=== PATIENT | female | born 1990 | race Caucasian/White ===

== ENCOUNTER 2021-05-21 01:49 | Inpatient (IN) | payer OTHER, SELFPAY ==
[2021-05-21] VITALS (30 sets, daily range): BP systolic 111–153; BP diastolic 66–99; PULSE 70–168; RESP 16–18; TEMP 36.4–37.3; O2SAT 92–100; BMI 25.1
[2021-05-21] MEDS: Lactated Ringers 1,000 ML 50 ML IV (02:05)
[2021-05-21 02:18] LABS: Absolute Lymphocyte Count 1.13 X10^3/uL (0.83-4.51); Absolute Neutrophil Count 8.3 X10^3/uL (2.0-7.7); Basophil# 0.05 X10^3/uL; Basophil% 0.5 % (0-1); Eosinophil# 0.08 X10^3/uL; Eosinophils% 0.8 % (0-5); Hemoglobin 13.2 g/dL (12.0-15.0); Lymphocyte # 1.13 X10^3/ul (0.83-4.51); Mean Corp Hgb Conc 34.7 g/dL (32-36); Mean Corpuscular Hgb 31.1 pg (27.0-32.0); Mean Corpuscular Volume 89.4 fL (81-99); Mean Platelet Vol. 9.2 fl (6.2-12.0); Monocyte# 0.64 X10^3/uL; Monocyte% 6.2 % (0-10); NRBC Flagged by Analyzer 0 % (0-5); Neutrophil # 8.27 X10^3/uL (2.7-7.7); Neutrophil % 80.7 % (47-70); Platelet Count 201 K/mm3 (150-450); RBC Distribution Width CV 13.2 % (11.6-14.6); RBC Distribution Width SD 43.2 fl (35.1-43.9); Red Blood Count 4.25 M/mm3 (4.2-5.4); White Blood Count 10.3 K/mm3 (4.4-11.0)
[2021-05-21] MEDS: Lactated Ringers 500 ML 999 ML IV ×2 (02:18→04:09)
[2021-05-21] MEDS: Oxytocin 30 units/NS 500 ml 30 UNITS/500 ML IV.SOLN 334 UNITS IV (06:35)
[2021-05-21] MEDS: Methylergonovine 0.2 MG/ML Ampul IM (06:45)
--- NOTE | 2021-05-21 06:50 | PCM.HP.OB ---
HPI - General General Date of Admission: 05/21/21 Date of Service: 05/21/21 Chief Complaint: labor HPI Narrative JANNETH PRATT, 31-year-old 4 para 3 at 40-3/7 weeks gestation complaining of contractions ablatio. has been uncomplicated to date. She has a history of 3 vaginal deliveries. She had gestational hypertension with her first . Maternal Data Information Final BILL: 05/18/21 Gestational age: 40 3/7 weeks PFSH PFSH Medical History (Updated 05/21/21 @ 06:[address] Ingrid Fernández MD) Gestational HTN Home Medications Baby Aspirin 81 mg DAILY 05/21/21 [History Last Taken 05/20/21 21:00] 08/29 1 tablet DAILY 05/21/21 [History Last Taken 05/20/21 21:00] Allergy/AdvReac Type Severity Reaction Status Date / Time Cephalosporins Allergy Swelling Verified 05/21/21 01:58 Sulfa (Sulfonamide Allergy Swelling Verified 05/21/21 01:58 Antibiotics) ciprofloxacin [From Cipro] AdvReac Rash Verified 05/21/21 01:58 Surgical History (Updated 05/21/21 @ 02:08 by Verónica Pereyra) History of surgery Social History Smoking Status: Never smoker History Elective abortions Hx Para 3 Spontaneous abortions Hx # Term Pregnancies Ectopic pregnancies Hx # Pregnancies Multiple births # of living children ROS Constitutional Constitutional: Denies fatigue, fever(s) or malaise Eyes Eyes: Denies change in vision ENT HEENT: Denies dizziness or headache(s) Cardiovascular Cardiovascular: Denies chest pain, dyspnea or lightheadedness Respiratory/Chest Respiratory/Chest: Denies cough or dyspnea Gastrointestinal Gastrointestinal: Denies change in bowel habits Genitourinary Genitourinary: Denies burning urination or genital lesions Integumentary Integumentary: Denies rash Neurologic Neurologic: Denies confusion, dizziness, headache(s), numbness or weakness Vital Signs Vital Signs Vital Signs: 05/21/21 01:48 05/21/21 01:53 05/21/21 02:18 Temperature 98.5 F Temperature Source Temporal Pulse Rate 86 87 Blood Pressure 142/95 H BP Systolic 142 BP Diastolic 95 Pulse Ox 98 92 05/21/21 02:22 05/21/21 02:27 05/21/21 02:51 Temperature Temperature Source Pulse Rate 82 89 168 H Blood Pressure 153/99 H BP Systolic 153 BP Diastolic 99 Pulse Ox 100 99 98 05/21/21 02:52 05/21/21 03:24 05/21/21 03:25 Temperature 98.1 F 98.1 F Temperature Source Temporal Temporal Pulse Rate 70 79 Blood Pressure 136/90 H BP Systolic 136 BP Diastolic 90 Pulse Ox 99 98 05/21/21 05:00 Temperature 98.7 F Temperature Source Temporal Pulse Rate 89 Blood Pressure 131/90 H BP Systolic 131 BP Diastolic 90 Pulse Ox 96 Weight Weight: 66.4 kg Body Mass Index (BMI) 25.1 Physical Exam Const alert and no apparent distress General Appearance: cooperative HEENT normocephalic Resp normal respiratory effort Cardio regular rate GI soft to palpation GI Narrative: gravid, nontender, appropriate for gestational age Extremity no calf tenderness General Extremity: edema Skin no wounds Rashes: No rashes noted Psych activity/motor behavior normal Labs Labs Labs: Blood Type AB NEGATIVE Antibody Screen TNP Hct 38.0 % (37-47) Hgb 13.2 g/dL (12.0-15.0) Assessment & Plan (1) 40 weeks gestation of : (2) Multigravida in third trimester: PLAN: Estimated weight is less than 4500 g clinically and pelvis clinically adequate to expect vaginal delivery. May have epidural if needed. Expectant management for vaginal delivery. (3) Active labor:
--- NOTE | 2021-05-21 06:52 | OP.PCM_ITS ---
Maternal Data Information Final BILL: 05/18/21 Gestational age: 40 3/7 Vaginal Delivery Maternal Presentation Maternal Presentation: Active Labor Operative Information Date of Procedure: 05/21/21 Pre-Operative Diagnosis: labor Post-Operative Diagnosis: same Surgery / Procedure Performed: Spontaneous Vaginal Delivery Type of Anesthesia: None Special Medications: none Drain: - (none) Estimated Blood Loss: 500 Time of Delivery: 06:33 Findings Description of Procedure: A vigorous [female] was delivered [ADONIS] over a small first-degree laceration. [A loose nuchal cord ?1 was easily reduced.] The remainder the infant was delivered with maternal pushing and gentle traction only in less than 15 seconds. The Pitocin infusion was initiated for active management of the third stage. The cord was clamped and cut [after 1 minute]. The infant was attended to by the waiting nursing staff. The placenta was deli praful spontaneously and intact. The cervix and vagina were intact. The first- degree laceration was hemostatic and not repaired. Some small clots were expressed from the uterus. Patient was given Methergine IM x1 to help keep the uterus firm. Fundus was firm on massage. Sponge and needle counts were correct. A vaginal sweep was completed by me. Presentation: ADONIS Amniotic Membrane Rupture Type: Artificial Amniotic Fluid Description: Lightly stained meconium Placental Delivery Description: Spontaneous Placenta Disposition: [facility] Cord Vessel Description: 3 Vessels Cord Entanglement: Around neck x 1, loose Nuchal Cord Compression: Without compression Infant A Gender: Female (Apryl) (1 minute): 8 (5 minute): 9 Delayed Cord Clamping: Yes Post Vaginal Delivery Medications Given After Delivery: IV Pitocin and IM Methergin Episiotomy Description: 1st degree Laceration: 1st degree Complication Complications: None Admit VTE Documentation VTE Present on Admission: No VTE Mechan Device Prophylaxis: SCD's VTE Pharm Prophylaxis Ordered: No Reason Prophylaxis Not Ordered: Procedure Not Indicated
[2021-05-21] MEDS: Naproxen 500 MG Tablet PO ×2 (07:21→15:23)
[2021-05-21] MEDS: Acetaminophen 500 MG Tablet 1000 MG PO ×2 (09:00→15:22)
--- NOTE | 2021-05-21 10:33 | NURSING ---
called [facility] nurse line to update about patient having moderate bleeding and that she had a dose of Methergine around 7am and that I do not have any orders for medications for bleeding. Asked nurse to update Dr. Huang who is consulting group analyst and gave her my extension.
--- NOTE | 2021-05-21 10:49 | NURSING ---
At [address] Huang. Updated her on medications that patient has had so far and that her bleeding was moderate at this last check and that patient is using the bathroom Q1-2 hours. Orders received for hemabate x1, Lomotilx1, CBC in AM and to call office at noon to update her on patient's bleeding.
[2021-05-21] MEDS: Diphenoxylate/Atrop 1 Tablet 2 TABLET PO (10:59)
[2021-05-21] MEDS: Carboprost Tromethamine 250 MCG/ML Ampul IM (10:59)
[2021-05-21] MEDS: Benzocaine/Lanolin/Aloe Vera 1 SPRAY EACH TOPICAL (12:17)
--- NOTE | 2021-05-21 12:25 | NURSING ---
Called [facility] to Update Dr. Huang about patient's bleeding after taking Hemabate. Updated nurse that patient's bleeding is doing a lot better and is a small amount with noon fundal check. Nurse states that she will let Dr. Huang know.
--- NOTE | 2021-05-21 12:39 | NURSING ---
Pt informed this nurse around 1210 that the left thigh where hemabate was injected is sore and red. Area cool to touch but patient states that it is painful but not itchy. Pt denies difficulty breathing or SOB. This RN asked Sanchez Doty RN to come look at area on patient's leg to confirm that it does look reddened. Pharmacist called at 1231to report reaction. Pharmacist states that localized reaction to the injection is listed on their adverse reaction list for this medication and suggested to get an order from Dr. Huang for Benadryl. Will call [facility] and Update Dr. Huang.
--- NOTE | 2021-05-21 12:47 | NURSING ---
Talked to Dr. Huang via phone. Updated her about the reaction on her left thigh from Hemabate injection and that the pharmacist suggested giving benadryl. Also updated her on patient having diarrhea even after Lomotil dose and that her bleeding is now appropriate. orders received for Benadryl and Loperamide.
--- NOTE | 2021-05-21 13:04 | NURSING ---
Area on outer left thigh marked and measures 6 1/4 inches proximal to distal and 7 inches wide.
--- NOTE | 2021-05-21 13:58 | NURSING ---
This nursing staffing coordinator reviewed the documentation completed by Davida Guerra, student nurse and it is complete.
[2021-05-21] MEDS: DiphenhydrAMINE 25 MG Capsule PO (14:10)
--- NOTE | 2021-05-21 16:03 | NURSING ---
1546 Reddened area on outer left thigh marked and measures 6 1/4 inches proximal to distal and 7 inches wide with small bruise in center
[2021-05-22] VITALS (7 sets, daily range): BP systolic 103–123; BP diastolic 55–80; PULSE 82–99; RESP 16; TEMP 36.3–37.1; O2SAT 98
[2021-05-22 04:23] LABS: Absolute Lymphocyte Count 1.57 X10^3/uL (0.83-4.51); Absolute Neutrophil Count 8.1 X10^3/uL (2.0-7.7); Basophil# 0.04 X10^3/uL; Basophil% 0.4 % (0-1); Eosinophil# 0.13 X10^3/uL; Eosinophils% 1.2 % (0-5); Hematocrit 33.1 % (37-47); Hemoglobin 11.1 g/dL (12.0-15.0); Lymphocyte # 1.57 X10^3/ul (0.83-4.51); Lymphocyte % 14.7 % (19-41); Mean Corp Hgb Conc 33.5 g/dL (32-36); Mean Corpuscular Hgb 31.1 pg (27.0-32.0); Mean Corpuscular Volume 92.7 fL (81-99); Mean Platelet Vol. 8.9 fl (6.2-12.0); Monocyte# 0.73 X10^3/uL; Monocyte% 6.9 % (0-10); NRBC Flagged by Analyzer 0 % (0-5); Neutrophil # 8.08 X10^3/uL (2.7-7.7); Neutrophil % 75.9 % (47-70); Platelet Count 185 K/mm3 (150-450); RBC Distribution Width CV 13.4 % (11.6-14.6); RBC Distribution Width SD 45.3 fl (35.1-43.9); Red Blood Count 3.57 M/mm3 (4.2-5.4); White Blood Count 10.7 K/mm3 (4.4-11.0)
--- NOTE | 2021-05-22 07:10 | NURSING ---
bedside report given to Glenn Ramsey RN and Stan Rosa RN who are assuming care of pt at this time
--- NOTE | 2021-05-22 10:32 | NURSING ---
This nurse came into the pt room. Pt was tearful and stated she was tired and had a mckinney of adrenaline. Pt has not been tearful this shift when asked if there was something she need or if there was anything we could do. She denied needing any help. This nurse suggested pt take a nap, Vital signs within normal limits. Bleeding and fundas were appropriate. watching while pt sleeps.Phone call placed to provider for discharge order.
--- NOTE | 2021-05-22 10:57 | PCM.PN.OB ---
Subjective Subjective Denies complaints Objective Data Objective Data Vital Signs: Vital Signs Temp Pulse Resp BP Pulse Ox 97.3 F L 99 16 123/80 H 98 05/22/21 10:13 05/22/21 10:13 05/22/21 10:13 05/22/21 10:13 05/22/21 00:27 Oxygen Delivery Method Room Air Weight: 146 lb 6.191 oz Body Mass Index (BMI) 25.1 Intake & Output: Intake and Output for Last 24 Hours 05/20/21 05/21/21 05/22/21 23:59 23:59 23:59 Intake Total 2125.83 / 2125.83 Output Total 200 / 200 Balance 1925.83 / 1925.83 Lab / Micro Data Result Diagrams: 05/22/21 04:15 Labs: Laboratory Results - last 24 hr 05/22/21 04:15: WBC 10.7, RBC 3.57 L, Hgb 11.1 L, Hct 33.1 L, MCV 92.7, MCH 31.1, MCHC 33.5, RDW Std Deviation 45.3 H, RDW Coeff of Renea 13.4, Plt Count 185, MPV 8.9, Immature Gran % (Auto) 0.900, Neut % (Auto) 75.9 H, Lymph % (Auto) 14.7 L, [place] % (Auto) 6.9, Eos % (Auto) 1.2, Baso % (Auto) 0.4, Absolute Neuts (auto) 8.1 H, Absolute Lymphs (auto) 1.57, Nucleated RBC % 0 Micro: Microbiology 05/21/21 02:00 Nasal Secretion SARS-CoV-2 Antigen (Rapid) - Final Physical Exam Const alert, oriented x3 and no apparent distress HEENT normocephalic GI soft to palpation, non-tender and non-distended GI Narrative: fundus firm, mid & below umbilicus Extremity normal to inspection and no calf tenderness Assessment & Plan (1) 40 weeks gestation of : COMMENT: PPD#1 PLAN: D/c home per patient request
--- NOTE | 2021-05-22 10:58 | PCM.DC ---
Discharge Instructions Diet Discharge Diet: No restrictions Activity Discharge Activity: May Shower May resume sexual activity in: 6 weeks Weight Bearing Status: Weight bearing as tolerated Dressing / Incision Call your doctor if you observe: Fever of 101 or Higher, Coldness, Increased Pain, Change in Color, Inability to urinate, Inability to have a bowel movement, Using more than 1 pad per hour, Shortness of breath, Dizziness, Fainting spells, Chest pain, Increased palpitations (irregular heartbeat), Calf discomfort and Uncontrolled pain Follow Up Care Please Follow Up With: Ingrid Fernández MD When: Follow up in 2 and 6 weeks for visits. Test Results: Test results from this visit will be discussed in further detail at your follow-up appointment, if applicable. Discharge Plan Admission Admit Date/Time: 05/21/21 01:49 Primary Reason for Your Visit: Vaginal delivery Attending Provider: Ingrid Fernández Primary Care Provider: Care Physician,No Primary Discharge Orders/Prescriptions Prescriptions: New acetaminophen 500 mg Tablet 1,000 mg PO Q6H PRN PRN (Reason: Pain 1-10 Or Fever) Qty: 0 RF: 0 naproxen 500 mg Tablet 500 mg PO Q8H PRN PRN (Reason: Pain Score 1-3) Qty: 0 RF: 0 Continued 08/29 1 tablet DAILY RF: 0 Discontinued Baby Aspirin 81 mg DAILY RF: 0 Referrals / Follow Up: Care Physician,No Primary [Primary Care Provider] - Disposition Disposition (needs filled in before D/C Order can be placed): Home, Self Care
== END 2021-05-22 11:50 | disposition home or self-care (01) | DRG 807 ==
LOC: WPOUT 01:52 → WP 01:52
PROVIDERS: Obstetrics & Gynecology; Admitting Provider Obstetrics & Gynecology; Referring Provider Obstetrics & Gynecology; Visit Provider Obstetrics & Gynecology
DX: O69.81X0 Labor and delivery complicated by cord around neck, without compression, not applicable or unspecified (principal); Z37.0 Single live birth; Z3A.40 40 weeks gestation of pregnancy; Z79.82 Long term (current) use of aspirin; O70.0 First degree perineal laceration during delivery; O77.0 Labor and delivery complicated by meconium in amniotic fluid
CPT/HCPCS: 59025; 59050; 85025; 85461; 86850; 86900; 86901; 87426; 90384; 99218; J7120; G0378; J2790

== ENCOUNTER → 2021-07-08 21:15 | Outpatient (CLI) | payer OTHER, SELFPAY | PROVIDERS: Referring Provider Obstetrics & Gynecology; Visit Provider Obstetrics & Gynecology | DX: R63.30 Feeding difficulties, unspecified (principal) | CPT/HCPCS: 96158; 96159 ==